=== PATIENT | male | born 1935 | race Caucasian/White ===

== ENCOUNTER 2018-06-09 12:58 | Inpatient (IN) ==
[2018-06-09] MEDS ORDERED: ALBUTEROL 2.5 MG/3 ML NEB RESP TX PRN (15:12)
[2018-06-09] MEDS ORDERED: GLUCAGON 1 MG VIAL IM PRN ×2 (15:13)
[2018-06-09] MEDS ORDERED: DEXTROSE 50% 25 GM/50 ML SYRINGE IV PRN (15:13)
[2018-06-09] MEDS ORDERED: DEXTROSE 50% 25 GM/50 ML VIAL IV PRN (15:13)
[2018-06-09] MEDS ORDERED: ACETAMINOPHEN 325 MG TABLET PO PRN (15:18)
[2018-06-09] MEDS ORDERED: ONDANSETRON 4 MG/2 ML VIAL IV PRN (15:18)
[2018-06-09] MEDS: SODIUM CHLORIDE 0.9% 1,000 ML IV SCH (18:13)
[2018-06-09] MEDS: methylPREDNISolone SOD SUC 125 MG/2 ML VIAL IV SCH (18:51)
[2018-06-09] MEDS: PIPERACILLIN/TAZOBACTAM 3,375 MG in SODIUM CHLORIDE 0.9% 100 ML IV SCH (18:55)
[2018-06-09 19:19] LABS: Osmolality,Calculated 284.1 MOS/KG (273-304); Potassium 3.5 MMOL/L (3.5-5.1)
[2018-06-09] MEDS: INSULIN REGULAR 100 UNIT/ML SUBCUT SCH ×2 (19:29→21:25)
[2018-06-09] MEDS: ALBUTEROL/IPRATROPIUM 3 ML NEB RESP TX SCH (19:37)
[2018-06-09] MEDS: DOCUSATE SODIUM 100 MG CAPSULE PO SCH (21:36)
[2018-06-10] MEDS: ALBUTEROL/IPRATROPIUM 3 ML NEB RESP TX SCH ×4 (01:15→20:15)
[2018-06-10] MEDS: VANCOMYCIN INJ 1,250 MG in SODIUM CHLORIDE 0.9% 250 ML IV SCH ×2 (01:32→16:40)
[2018-06-10] MEDS: methylPREDNISolone SOD SUC 125 MG/2 ML VIAL IV SCH ×3 (01:32→13:16)
[2018-06-10] MEDS: PIPERACILLIN/TAZOBACTAM 3,375 MG in SODIUM CHLORIDE 0.9% 100 ML IV SCH ×3 (04:23→19:36)
[2018-06-10 05:49] LABS: Basophils % 0.2 % (0.0-0.8); Eosinophils % 0.1 % (0.00-10.9); Hematocrit 38.8 VOL% (42.0-52.0); Hemoglobin 12.6 GM/DL (14.0-18.0); Immature Granulocytes % 9.2 %; Immature Granulocytes Absolute 1.47 #; Mean Corpuscular HGB Conc 32.5 GM/DL (32-36); Mean Corpuscular Hemoglobin 30 PG (27-34); Mean Corpuscular Volume 93.3 FL (87-102); Mean Platelet Volume 10.7 FL (9.6-12.0); Monocytes # 0.3 10*3/uL (0.11-0.8); Neutrophils # 13.2 10*3/uL (1.4-7.4); Neutrophils % 82.5 % (38.7-73.9); Platelet Count 243 T/CUMM (130-400); Red Blood Count 4.16 MC/CUMM (3.8-5.5); White Blood Count 16.1 T/CUMM (4-12)
[2018-06-10 06:22] LABS: Bilirubin,Total 0.4 MG/DL (0.2-1.0); Calcium 7.4 MG/DL (8.5-10.1); Osmolality,Calculated 291.8 MOS/KG (273-304); Total Protein 6.2 G/DL (6.4-8.3)
[2018-06-10 06:28] LABS: Lymphocytes 10 % (20-55); Myelocytes 1 %; Segmented Neutrophils 86 % (50-85); Total Cells Counted 100
[2018-06-10 06:29] LABS: Hypochromasia Slight; Microcytosis 1+
[2018-06-10 09:00] LABS: INR 1.3
[2018-06-10] MEDS: DOCUSATE SODIUM 100 MG CAPSULE PO SCH ×2 (09:18→21:28)
[2018-06-10] MEDS: SODIUM CHLORIDE 0.9% 1,000 ML IV SCH ×2 (09:18→19:36)
[2018-06-10] MEDS: INSULIN REGULAR 100 UNIT/ML SUBCUT SCH ×4 (09:18→22:30)
[2018-06-10] MEDS ORDERED: DIAZEPAM 5 MG TABLET PO ONE (09:46)
[2018-06-10] MEDS ORDERED: fentaNYL 100 MCG/2 ML VIAL IV ONE (09:46)
[2018-06-10] MEDS ORDERED: MIDAZOLAM 2 MG/2 ML VIAL IV ONE (09:46)
[2018-06-10] MEDS: SODIUM CHLORIDE 0.45% 1,000 ML IV SCH (10:43)
[2018-06-10] MEDS ORDERED: HEPARIN/NACL 0.9% 2 UNITS/ML 2,000 ML IV ONE (10:49)
[2018-06-10] MEDS ORDERED: fentaNYL 100 MCG/2 ML VIAL ONE (11:09)
[2018-06-10] MEDS ORDERED: MIDAZOLAM 2 MG/2 ML VIAL ONE (11:09)
[2018-06-10] MEDS ORDERED: HEPARIN 5,000 UNIT/1 ML VIAL IV ONE (11:45)
[2018-06-10] MEDS ORDERED: HEPARIN 5,000 UNIT/1 ML VIAL ONE (11:45)
[2018-06-10] MEDS ORDERED: METOPROLOL TARTRATE 5 MG/5 ML VIAL IV ONE (13:35)
[2018-06-10] MEDS ORDERED: dilTIAZem Drip 125 MG/125 ML PREMIX IV ONE (15:00)
[2018-06-10] MEDS ORDERED: DILTIAZEM 50 MG/10 ML VIAL IV ONE (15:13)
[2018-06-10] MEDS: dilTIAZem Drip 125 MG/125 ML PREMIX IV SCH ×2 (15:23→21:00)
[2018-06-10] MEDS ORDERED: MAGNESIUM SULF RIDER 2 GM in PREMIX 1 EACH IV PRN (15:36)
[2018-06-10] MEDS ORDERED: MAGNESIUM SULF RIDER 4 GM in PREMIX 1 EACH IV PRN (15:36)
[2018-06-10] MEDS ORDERED: MAGNESIUM SULF RIDER 2 GM in PREMIX 1 EACH IV ONE (17:00)
[2018-06-10 17:35] LABS: Troponin I 0.032 NG/ML (0.00-0.045)
[2018-06-10] MEDS: DILTIAZEM 30 MG TABLET PO SCH (18:35)
[2018-06-10] MEDS: ASCORBIC ACID 500 MG TABLET PO SCH (21:28)
[2018-06-10] MEDS: METOPROLOL TARTRATE 25 MG TABLET PO SCH (21:28)
[2018-06-11 00:37] LABS: Basophils % 0.1 % (0.0-0.8); Eosinophils % 0.1 % (0.00-10.9); Hematocrit 37.7 VOL% (42.0-52.0); Hemoglobin 11.9 GM/DL (14.0-18.0); Immature Granulocytes % 9.8 %; Immature Granulocytes Absolute 2.42 #; Lymphocytes # 1.8 10*3/uL (1.4-4.0); Lymphocytes % 7.1 % (21.2-54.2); Mean Corpuscular HGB Conc 31.6 GM/DL (32-36); Mean Corpuscular Hemoglobin 30 PG (27-34); Mean Platelet Volume 10.6 FL (9.6-12.0); Monocytes # 2.1 10*3/uL (0.11-0.8); Monocytes % 8.4 % (1.7-12.7); Neutrophils # 18.4 10*3/uL (1.4-7.4); Neutrophils % 74.5 % (38.7-73.9); Platelet Count 250 T/CUMM (130-400); Red Blood Count 3.97 MC/CUMM (3.8-5.5); Red Cell Distribution Width 14.1 % (9.3-17.3); White Blood Count 24.7 T/CUMM (4-12)
[2018-06-11 00:53] LABS: Alanine Aminotransferase 20 U/L (16-61); Albumin 1.9 G/DL (3.4-5.0); Alkaline Phosphatase 91 U/L (45-117); Aspartate Amino Transferase 12 U/L (0-37); Bilirubin,Total < 0.39 MG/DL (0.2-1.0); Blood Urea Nitrogen 23 MG/DL (7-18); Calcium 7.5 MG/DL (8.5-10.1); Glucose 269 MG/DL (74-106); Osmolality,Calculated 295.1 MOS/KG (273-304); Potassium 3.7 MMOL/L (3.5-5.1); Sodium 142 MMOL/L (136-145); Total Protein 5.5 G/DL (6.4-8.3)
[2018-06-11] MEDS: DILTIAZEM 30 MG TABLET PO SCH ×4 (01:30→17:32)
[2018-06-11] MEDS: ALBUTEROL/IPRATROPIUM 3 ML NEB RESP TX SCH ×4 (01:44→18:50)
[2018-06-11] MEDS: PIPERACILLIN/TAZOBACTAM 3,375 MG in SODIUM CHLORIDE 0.9% 100 ML IV SCH ×3 (03:30→17:33)
[2018-06-11 03:45] LABS: Band Neutrophils 4 % (0-10); Lymphocytes 11 % (20-55); Metamyelocytes 3 %; Myelocytes 1 %; Platelet Estimate Normal; Segmented Neutrophils 71 % (50-85); Total Cells Counted 100
[2018-06-11] MEDS: VANCOMYCIN INJ 1,250 MG in SODIUM CHLORIDE 0.9% 250 ML IV SCH ×2 (04:00→15:00)
[2018-06-11 08:15] LABS: Troponin I 0.128 NG/ML (0.00-0.045)
[2018-06-11] MEDS: SERTRALINE 50 MG TABLET PO SCH (08:29)
[2018-06-11] MEDS: METOPROLOL TARTRATE 25 MG TABLET PO SCH ×2 (08:30→20:39)
[2018-06-11] MEDS: ASPIRIN CHEW 81 MG TABLET PO SCH (08:30)
[2018-06-11] MEDS: DOCUSATE SODIUM 100 MG CAPSULE PO SCH ×2 (08:30→20:39)
[2018-06-11] MEDS: INSULIN REGULAR 100 UNIT/ML SUBCUT SCH ×4 (08:30→21:11)
[2018-06-11] MEDS: DONEPEZIL 5 MG TABLET PO SCH (08:31)
[2018-06-11] MEDS: SODIUM CHLORIDE 0.9% 1,000 ML IV SCH (08:31)
[2018-06-11] MEDS: ASCORBIC ACID 500 MG TABLET PO SCH ×2 (08:34→20:39)
[2018-06-11] MEDS ORDERED: POTASSIUM CHLORIDE 20 MEQ TABLET PO ONE (09:15)
[2018-06-11] MEDS: SODIUM CHLORIDE 0.45% 1,000 ML IV SCH (10:40)
[2018-06-11] MEDS: dilTIAZem Drip 125 MG/125 ML PREMIX IV SCH (15:01)
[2018-06-11] MEDS: ZINC OXIDE PASTE 113 GM TUBE TOP SCH ×2 (15:01→20:40)
[2018-06-11 18:32] LABS: Apearance,Urine CLEAR (Clear); Bilirubin,Urine Negative (Negative); Blood, Urine Negative (Negative); Glucose,Urine (UA) 150 mg/dL (Negative); Ketones,Urine Negative (Negative); Mucus,Urine Occasional /LPF (Occasional); Nitrite,Urine Negative (Negative); Protein,Urine Negative; RBC,Urine <1 /HPF (0-4); Squamous Epithelial Cell,Urine Occasional /HPF (0-10); Urine Color Yellow (Yellow); Urine Specific Gravity 1.027 (1.001-1.035); Urine Urobilinogen < 2.0 EU/DL (0.2-1.0); WBC,Urine 1 /HPF (0-6)
[2018-06-12] MEDS: ALBUTEROL/IPRATROPIUM 3 ML NEB RESP TX SCH ×4 (00:30→21:52)
[2018-06-12] MEDS: VANCOMYCIN INJ 1,250 MG in SODIUM CHLORIDE 0.9% 250 ML IV SCH (02:29)
[2018-06-12 02:51] LABS: Basophils % 0.2 % (0.0-0.8); Eosinophils # 0.2 10*3/uL (0.0-0.87); Eosinophils % 1.5 % (0.00-10.9); Hematocrit 26.4 VOL% (42.0-52.0); Hemoglobin 8.6 GM/DL (14.0-18.0); Immature Granulocytes % 7.3 %; Immature Granulocytes Absolute 1.21 #; Lymphocytes # 4.4 10*3/uL (1.4-4.0); Lymphocytes % 26.5 % (21.2-54.2); Mean Corpuscular HGB Conc 32.6 GM/DL (32-36); Mean Corpuscular Hemoglobin 31 PG (27-34); Mean Platelet Volume 10.2 FL (9.6-12.0); Monocytes # 1.4 10*3/uL (0.11-0.8); Monocytes % 8.4 % (1.7-12.7); Neutrophils # 9.3 10*3/uL (1.4-7.4); Neutrophils % 56.1 % (38.7-73.9); Platelet Count 208 T/CUMM (130-400); Red Blood Count 2.78 MC/CUMM (3.8-5.5); Red Cell Distribution Width 14.1 % (9.3-17.3); White Blood Count 16.6 T/CUMM (4-12)
[2018-06-12 03:12] LABS: Albumin 1.4 G/DL (3.4-5.0); Bilirubin,Total 0.9 MG/DL (0.2-1.0); Osmolality,Calculated 298.6 MOS/KG (273-304); Potassium 2.7 MMOL/L (3.5-5.1); Total Protein 3.7 G/DL (6.4-8.3)
[2018-06-12 03:14] LABS: Calcium 5.4 MG/DL (8.5-10.1)
[2018-06-12 03:31] LABS: Eosinophils 1 % (0-10); Lymphocytes 12 % (20-55); Platelet Estimate Adequate; Polychromasia Few; Segmented Neutrophils 83 % (50-85); Total Cells Counted 100
[2018-06-12] MEDS: PIPERACILLIN/TAZOBACTAM 3,375 MG in SODIUM CHLORIDE 0.9% 100 ML IV SCH ×3 (03:57→17:20)
[2018-06-12] MEDS: POTASSIUM CHLORIDE RIDER 10 MEQ in PREMIX 1 EACH IV PRN (03:57)
[2018-06-12 05:11] LABS: Calcium 7.9 MG/DL (8.5-10.1); Potassium 3.7 MMOL/L (3.5-5.1)
[2018-06-12] MEDS: DILTIAZEM 30 MG TABLET PO SCH ×2 (06:21)
[2018-06-12 07:59] LABS: Troponin I 0.054 NG/ML (0.00-0.045)
[2018-06-12] MEDS: DOCUSATE SODIUM 100 MG CAPSULE PO SCH ×2 (08:25→21:14)
[2018-06-12] MEDS: ASPIRIN CHEW 81 MG TABLET PO SCH (08:25)
[2018-06-12] MEDS: INSULIN REGULAR 100 UNIT/ML SUBCUT SCH ×4 (08:25→21:15)
[2018-06-12] MEDS: DONEPEZIL 5 MG TABLET PO SCH (08:25)
[2018-06-12] MEDS: ASCORBIC ACID 500 MG TABLET PO SCH ×2 (08:26→21:14)
[2018-06-12] MEDS: SERTRALINE 50 MG TABLET PO SCH (08:26)
[2018-06-12] MEDS: DILTIAZEM 60 MG TABLET PO SCH ×3 (08:59→21:13)
[2018-06-12] MEDS: METOPROLOL TARTRATE 25 MG TABLET PO SCH ×2 (08:59→21:14)
[2018-06-12] MEDS: ZINC OXIDE PASTE 113 GM TUBE TOP SCH ×2 (08:59→21:15)
[2018-06-12] MEDS: SODIUM CHLORIDE 0.45% 1,000 ML IV SCH (10:20)
[2018-06-12] MEDS ORDERED: BUPIVACAINE 0.5% 50 ML VIAL ONE (13:57)
[2018-06-12] MEDS ORDERED: PROPOFOL 200 MG/20 ML VIAL IV ONE (14:43)
[2018-06-12] MEDS ORDERED: SODIUM CHLORIDE 0.9% 1,000 ML IV ONE (14:44)
[2018-06-12] MEDS: dilTIAZem Drip 125 MG/125 ML PREMIX IV SCH (15:41)
[2018-06-13] MEDS: ALBUTEROL/IPRATROPIUM 3 ML NEB RESP TX SCH ×4 (01:46→22:35)
[2018-06-13] MEDS: PIPERACILLIN/TAZOBACTAM 3,375 MG in SODIUM CHLORIDE 0.9% 100 ML IV SCH ×3 (02:28→18:10)
[2018-06-13 04:29] LABS: Basophils # 0.1 10*3/uL (0.0-0.2); Basophils % 0.5 % (0.0-0.8); Eosinophils # 0.3 10*3/uL (0.0-0.87); Eosinophils % 1.8 % (0.00-10.9); Hematocrit 31.9 VOL% (42.0-52.0); Hemoglobin 10.5 GM/DL (14.0-18.0); Immature Granulocytes % 5.6 %; Immature Granulocytes Absolute 1.04 #; Lymphocytes # 1.9 10*3/uL (1.4-4.0); Lymphocytes % 10.2 % (21.2-54.2); Mean Corpuscular HGB Conc 32.9 GM/DL (32-36); Mean Corpuscular Hemoglobin 31 PG (27-34); Mean Corpuscular Volume 93.3 FL (87-102); Mean Platelet Volume 10.4 FL (9.6-12.0); Monocytes % 10.6 % (1.7-12.7); Neutrophils # 13.1 10*3/uL (1.4-7.4); Neutrophils % 71.3 % (38.7-73.9); Platelet Count 247 T/CUMM (130-400); Red Blood Count 3.42 MC/CUMM (3.8-5.5); Red Cell Distribution Width 14.2 % (9.3-17.3); White Blood Count 18.4 T/CUMM (4-12)
[2018-06-13 04:51] LABS: Calcium 7.5 MG/DL (8.5-10.1); Osmolality,Calculated 302.3 MOS/KG (273-304); Potassium 3.1 MMOL/L (3.5-5.1)
[2018-06-13 05:03] LABS: Albumin 1.8 G/DL (3.4-5.0); Bilirubin,Total 0.8 MG/DL (0.2-1.0); Calcium 7.4 MG/DL (8.5-10.1); Osmolality,Calculated 302.3 MOS/KG (273-304); Potassium 3.2 MMOL/L (3.5-5.1); Total Protein 4.5 G/DL (6.4-8.3)
[2018-06-13 05:12] LABS: Band Neutrophils 2 % (0-10); Hypochromasia 1+; Lymphocytes 12 % (20-55); Platelet Estimate Adequate; Segmented Neutrophils 74 % (50-85); Total Cells Counted 100
[2018-06-13] MEDS: DILTIAZEM 60 MG TABLET PO SCH ×3 (06:27→18:10)
[2018-06-13] MEDS: POTASSIUM CHLORIDE RIDER 10 MEQ in PREMIX 1 EACH IV PRN ×5 (08:40→23:11)
[2018-06-13] MEDS: ASCORBIC ACID 500 MG TABLET PO SCH ×2 (08:41→21:34)
[2018-06-13] MEDS: DONEPEZIL 5 MG TABLET PO SCH (08:41)
[2018-06-13] MEDS: INSULIN REGULAR 100 UNIT/ML SUBCUT SCH ×4 (08:41→21:45)
[2018-06-13] MEDS: DOCUSATE SODIUM 100 MG CAPSULE PO SCH ×2 (08:41→21:33)
[2018-06-13] MEDS: ASPIRIN CHEW 81 MG TABLET PO SCH (08:41)
[2018-06-13] MEDS: SERTRALINE 50 MG TABLET PO SCH (08:42)
[2018-06-13] MEDS: METOPROLOL TARTRATE 25 MG TABLET PO SCH ×2 (08:42→21:34)
[2018-06-13] MEDS: ZINC OXIDE PASTE 113 GM TUBE TOP SCH ×2 (08:42→21:34)
[2018-06-13] MEDS: SODIUM CHLORIDE 0.9% 1,000 ML IV SCH ×2 (10:02→10:03)
[2018-06-13] MEDS: SODIUM CHLORIDE 0.45% 1,000 ML IV SCH ×2 (10:03→13:26)
[2018-06-13] MEDS: NEOMYCIN/POLYMYXIN/BACITRACIN OINT 0.9 GM PACK TOP SCH (10:15)
[2018-06-13] MEDS ORDERED: MAGNESIUM SULF RIDER 4 GM in PREMIX 1 EACH IV ONE (12:49)
[2018-06-13] MEDS: VANCOMYCIN INJ 1,250 MG in SODIUM CHLORIDE 0.9% 250 ML IV SCH (13:54)
[2018-06-13] MEDS: POTASSIUM CHLORIDE 20 MEQ TABLET PO SCH ×2 (13:58→21:34)
[2018-06-13] MEDS: dilTIAZem Drip 125 MG/125 ML PREMIX IV SCH (16:07)
[2018-06-14] MEDS: DILTIAZEM 60 MG TABLET PO SCH ×4 (00:37→17:59)
[2018-06-14] MEDS: ALBUTEROL/IPRATROPIUM 3 ML NEB RESP TX SCH ×4 (03:00→20:07)
[2018-06-14] MEDS: PIPERACILLIN/TAZOBACTAM 3,375 MG in SODIUM CHLORIDE 0.9% 100 ML IV SCH ×4 (03:02→18:08)
[2018-06-14] MEDS: POTASSIUM CHLORIDE RIDER 10 MEQ in PREMIX 1 EACH IV PRN ×6 (03:10→12:54)
[2018-06-14 04:09] LABS: Basophils # 0.1 10*3/uL (0.0-0.2); Basophils % 0.6 % (0.0-0.8); Eosinophils # 0.4 10*3/uL (0.0-0.87); Eosinophils % 1.9 % (0.00-10.9); Hematocrit 33.4 VOL% (42.0-52.0); Hemoglobin 10.6 GM/DL (14.0-18.0); Immature Granulocytes % 4.8 %; Immature Granulocytes Absolute 0.91 #; Lymphocytes # 2.3 10*3/uL (1.4-4.0); Lymphocytes % 11.8 % (21.2-54.2); Mean Corpuscular HGB Conc 31.7 GM/DL (32-36); Mean Corpuscular Hemoglobin 30 PG (27-34); Mean Corpuscular Volume 93.6 FL (87-102); Mean Platelet Volume 10.2 FL (9.6-12.0); Monocytes # 1.9 10*3/uL (0.11-0.8); Monocytes % 9.8 % (1.7-12.7); Neutrophils # 13.5 10*3/uL (1.4-7.4); Neutrophils % 71.1 % (38.7-73.9); Platelet Count 248 T/CUMM (130-400); Red Blood Count 3.57 MC/CUMM (3.8-5.5); Red Cell Distribution Width 14.2 % (9.3-17.3)
[2018-06-14 04:47] LABS: Calcium 7.5 MG/DL (8.5-10.1); Osmolality,Calculated 291.7 MOS/KG (273-304); Potassium 3.2 MMOL/L (3.5-5.1)
[2018-06-14 05:47] LABS: Eosinophils 2 % (0-10); Lymphocytes 5 % (20-55); Platelet Estimate Normal; Segmented Neutrophils 89 % (50-85); Total Cells Counted 100
[2018-06-14 05:48] LABS: Polychromasia Few
[2018-06-14] MEDS: ZINC OXIDE PASTE 113 GM TUBE TOP SCH ×2 (07:40→21:50)
[2018-06-14] MEDS: SODIUM CHLORIDE 0.45% 1,000 ML IV SCH ×4 (08:35→22:02)
[2018-06-14] MEDS: methylPREDNISolone SOD SUC 125 MG/2 ML VIAL IV SCH ×3 (08:36→21:50)
[2018-06-14] MEDS: INSULIN REGULAR 100 UNIT/ML SUBCUT SCH ×4 (08:36→21:51)
[2018-06-14] MEDS: ASPIRIN CHEW 81 MG TABLET PO SCH (08:38)
[2018-06-14] MEDS: SERTRALINE 50 MG TABLET PO SCH (08:38)
[2018-06-14] MEDS: DONEPEZIL 5 MG TABLET PO SCH (08:38)
[2018-06-14] MEDS: ASCORBIC ACID 500 MG TABLET PO SCH ×2 (08:38→21:50)
[2018-06-14] MEDS: DOCUSATE SODIUM 100 MG CAPSULE PO SCH ×2 (08:39→21:50)
[2018-06-14] MEDS: POTASSIUM CHLORIDE 20 MEQ TABLET PO SCH ×2 (08:39→21:50)
[2018-06-14] MEDS: NEOMYCIN/POLYMYXIN/BACITRACIN OINT 0.9 GM PACK TOP SCH (08:39)
[2018-06-14] MEDS: METOPROLOL TARTRATE 25 MG TABLET PO SCH ×2 (08:39→21:50)
[2018-06-14] MEDS: VANCOMYCIN INJ 1,250 MG in SODIUM CHLORIDE 0.9% 250 ML IV SCH (14:50)
[2018-06-14] MEDS: dilTIAZem Drip 125 MG/125 ML PREMIX IV SCH (15:07)
[2018-06-15] MEDS: ALBUTEROL/IPRATROPIUM 3 ML NEB RESP TX SCH ×4 (00:40→19:35)
[2018-06-15] MEDS: DILTIAZEM 60 MG TABLET PO SCH ×3 (00:42→12:29)
[2018-06-15] MEDS: methylPREDNISolone SOD SUC 125 MG/2 ML VIAL IV SCH ×3 (02:11→15:26)
[2018-06-15] MEDS: SODIUM CHLORIDE 0.45% 1,000 ML IV SCH ×2 (02:11→15:26)
[2018-06-15] MEDS: PIPERACILLIN/TAZOBACTAM 3,375 MG in SODIUM CHLORIDE 0.9% 100 ML IV SCH ×2 (02:12→09:02)
[2018-06-15 04:52] LABS: Basophils % 0.2 % (0.0-0.8); Eosinophils % 0.1 % (0.00-10.9); Hematocrit 37.2 VOL% (42.0-52.0); Hemoglobin 11.7 GM/DL (14.0-18.0); Immature Granulocytes % 2.7 %; Immature Granulocytes Absolute 0.34 #; Lymphocytes # 0.8 10*3/uL (1.4-4.0); Lymphocytes % 6.4 % (21.2-54.2); Mean Corpuscular HGB Conc 31.5 GM/DL (32-36); Mean Corpuscular Hemoglobin 30 PG (27-34); Mean Corpuscular Volume 94.7 FL (87-102); Mean Platelet Volume 10.9 FL (9.6-12.0); Monocytes # 0.4 10*3/uL (0.11-0.8); Neutrophils % 87.6 % (38.7-73.9); Platelet Count 212 T/CUMM (130-400); Red Blood Count 3.93 MC/CUMM (3.8-5.5); Red Cell Distribution Width 13.9 % (9.3-17.3); White Blood Count 12.5 T/CUMM (4-12)
[2018-06-15 05:09] LABS: Calcium 7.8 MG/DL (8.5-10.1); Potassium 4.2 MMOL/L (3.5-5.1)
[2018-06-15 05:18] LABS: Lymphocytes 6 % (20-55); Platelet Estimate Normal; Segmented Neutrophils 92 % (50-85); Total Cells Counted 100
[2018-06-15] MEDS: METOPROLOL TARTRATE 25 MG TABLET PO SCH ×2 (08:46→21:18)
[2018-06-15] MEDS: DOCUSATE SODIUM 100 MG CAPSULE PO SCH ×2 (08:46→21:19)
[2018-06-15] MEDS: ASPIRIN CHEW 81 MG TABLET PO SCH (08:46)
[2018-06-15] MEDS: SERTRALINE 50 MG TABLET PO SCH (08:46)
[2018-06-15] MEDS: ASCORBIC ACID 500 MG TABLET PO SCH ×2 (08:46→21:18)
[2018-06-15] MEDS: INSULIN REGULAR 100 UNIT/ML SUBCUT SCH ×4 (08:46→21:17)
[2018-06-15] MEDS: DONEPEZIL 5 MG TABLET PO SCH (08:46)
[2018-06-15] MEDS: ZINC OXIDE PASTE 113 GM TUBE TOP SCH ×2 (08:49→21:19)
[2018-06-15] MEDS: NEOMYCIN/POLYMYXIN/BACITRACIN OINT 0.9 GM PACK TOP SCH (08:49)
[2018-06-15] MEDS: POTASSIUM CHLORIDE 20 MEQ TABLET PO SCH ×2 (08:49→21:18)
[2018-06-15] MEDS ORDERED: TUBERCULIN SKIN TEST 0.1 ML SYRINGE INTRADERM ONE (13:00)
[2018-06-15] MEDS: DESITIN 4OZ/NYSTATIN 15 GRAM MIXTURE PASTE TOP SCH ×2 (15:05→21:19)
[2018-06-15] MEDS: dilTIAZem Drip 125 MG/125 ML PREMIX IV SCH (15:27)
[2018-06-15] MEDS: DILTIAZEM CD 240 MG CAPSULE PO SCH (21:18)
[2018-06-16] MEDS: ALBUTEROL/IPRATROPIUM 3 ML NEB RESP TX SCH ×3 (06:55→19:22)
[2018-06-16] MEDS: NEOMYCIN/POLYMYXIN/BACITRACIN OINT 0.9 GM PACK TOP SCH (09:19)
[2018-06-16] MEDS: DESITIN 4OZ/NYSTATIN 15 GRAM MIXTURE PASTE TOP SCH ×2 (09:19→21:55)
[2018-06-16] MEDS: INSULIN REGULAR 100 UNIT/ML SUBCUT SCH ×4 (09:19→21:55)
[2018-06-16] MEDS: ASPIRIN CHEW 81 MG TABLET PO SCH (09:19)
[2018-06-16] MEDS: DONEPEZIL 5 MG TABLET PO SCH (09:19)
[2018-06-16] MEDS: ASCORBIC ACID 500 MG TABLET PO SCH ×2 (09:19→21:55)
[2018-06-16] MEDS: POTASSIUM CHLORIDE 20 MEQ TABLET PO SCH ×2 (09:19→21:55)
[2018-06-16] MEDS: DOCUSATE SODIUM 100 MG CAPSULE PO SCH ×2 (09:19→21:55)
[2018-06-16] MEDS: METOPROLOL TARTRATE 25 MG TABLET PO SCH ×2 (09:20→21:55)
[2018-06-16] MEDS: SERTRALINE 50 MG TABLET PO SCH (09:20)
[2018-06-16] MEDS: ZINC OXIDE PASTE 113 GM TUBE TOP SCH ×2 (09:20→21:55)
[2018-06-16] MEDS: DILTIAZEM CD 240 MG CAPSULE PO SCH (21:55)
[2018-06-16] MEDS: CILOSTAZOL 50 MG TABLET PO SCH (22:48)
[2018-06-17 08:06] VITALS: BP 155/84
[2018-06-17] MEDS: ALBUTEROL/IPRATROPIUM 3 ML NEB RESP TX SCH (08:34)
[2018-06-17] MEDS: METOPROLOL TARTRATE 25 MG TABLET PO SCH (08:55)
[2018-06-17] MEDS: ASPIRIN CHEW 81 MG TABLET PO SCH (08:55)
[2018-06-17] MEDS: SERTRALINE 50 MG TABLET PO SCH (08:55)
[2018-06-17] MEDS: POTASSIUM CHLORIDE 20 MEQ TABLET PO SCH (08:55)
[2018-06-17] MEDS: INSULIN REGULAR 100 UNIT/ML SUBCUT SCH (08:55)
[2018-06-17] MEDS: CILOSTAZOL 50 MG TABLET PO SCH (08:55)
[2018-06-17] MEDS: ASCORBIC ACID 500 MG TABLET PO SCH (08:55)
[2018-06-17] MEDS: DESITIN 4OZ/NYSTATIN 15 GRAM MIXTURE PASTE TOP SCH (08:55)
[2018-06-17] MEDS: DOCUSATE SODIUM 100 MG CAPSULE PO SCH (08:55)
[2018-06-17] MEDS: NEOMYCIN/POLYMYXIN/BACITRACIN OINT 0.9 GM PACK TOP SCH (08:55)
[2018-06-17] MEDS: DONEPEZIL 5 MG TABLET PO SCH (08:55)
[2018-06-17] MEDS: ZINC OXIDE PASTE 113 GM TUBE TOP SCH (08:56)
== END 2018-06-17 11:13 | disposition home health service (06) | DRG 252 ==
LOC: N.3E 14:32 → SUATTDRO 14:32 → N.TELEN 06-10 14:46
PROVIDERS: ADMIT Internal Medicine; ATTEND Internal Medicine